=== PATIENT | female | born 1955 | race Caucasian/White ===

== ENCOUNTER 2016-06-22 07:58 | Emergency (ER) | payer BC ==
[~2016-06-22 07:58] MED LIST: ALTACE; ATEN25 PO; ATENOLOL; CENTRUM TAB1 TAB PO; CORDARONE PO; JANTOVEN3 MG PO; JANTOVEN4 MG PO; JANTOVEN6 MG PO; KDUR20 PO; L20 PO; LIPITOR40 PO; MICRO-K10 MEQ PO; PRIN10 PO; PRIN2.5 PO; SIMVASTATIN
[2016-06-22 08:12] LABS: BASOPHILS 0.2 %; BASOPHILS ABSOLUTE 0.03 10/3/uL (0.0-0.16); EOSINOPHILS 1.3 %; EOSINOPHILS ABSOLUTE 0.16 10/3/uL (0.0-0.53); HEMOGLOBIN 11.2 g/dL (12.0-16.0); IMMATURE GRANULOCYTES 0.3 %; IMMATURE GRANULOCYTES ABSOLUTE 0.04 10/3/uL (0.0-0.11); LYMPHOCYTES 10.4 %; LYMPHOCYTES ABSOLUTE 1.26 10/3/uL (0.67-4.30); MEAN CORPUSCULAR HEMOGLOB 32.5 pg (26.0-34.0); MEAN PLATELET VOLUME 10.7 fL (9.2-13.0); MONOCYTES 7.8 %; MONOCYTES ABSOLUTE 0.94 10/3/uL (0.21-1.20); NEUTROPHILS ABSOLUTE 9.68 10/3/uL (2.02-8.40); PLATELET COUNT 216 10/3/uL (150-400); RBC DISTRIBUTION WIDTH 12.9 % (12.0-16.0); RED CELL COUNT 3.45 10/6/uL (4.0-5.6)
[2016-06-22 08:14] LABS: ER CBC TAT 0 Hrs 10 Mins; HEMATOCRIT 33.4 % (36.0-48.0); MANUAL DIFF NO %; MEAN CORPUS HGB CONC 33.5 g/dL (32.0-36.0); MEAN CORPUSCULAR VOLUME 96.8 fL (80-100); WHITE BLOOD CELLS 12.1 10/3/uL (4.5-10.5)
[2016-06-22 08:31] LABS: A/G RATIO 0.9 (0.7-1.9); ALBUMIN 3.1 G/DL (3.5-5.0); ALKALINE PHOSPHATASE 108 U/L (45-117); BUN (BLOOD UREA NITROGEN) 54 MG/DL (6-23); CALCIUM, SERUM 8.5 MG/DL (8.5-10.4); CHLORIDE, SERUM 105 MMOL/L (96-112); CO2 (CARBON DIOXIDE) 26 MMOL/L (24-34); CREATININE 2.26 MG/DL (0.55-1.02); GFR AFRICAN AMERICAN 26 ML/MIN (>=60); GFR NON AFRICAN AMERICAN 23 ML/MIN (>=60); GLOBULIN 3.3 G/DL (2.5-4.1); GLUCOSE, SERUM 95 MG/DL (60-99); SGOT(AST) 18 U/L (5-40); SGPT(ALT) 14 U/L (5-65); SODIUM, SERUM 139 MMOL/L (135-148); TOTAL BILIRUBIN 0.5 MG/DL (0-1.2); TOTAL PROTEIN 6.4 G/DL (6.0-8.5)
[2016-06-22 08:40] LABS: ASCORBIC ACID (UR NOT ORDER) NEG (NEG); BILIRUBIN, URINE NEGATIVE (NEG); ER URINALYSIS TAT 0 Hrs 00 Mins; KETONE, URINE NEGATIVE (NEG); LEUKOCYTE ESTERASE(NOT OR NEG (NEG); NITRITE (URINE) NEG (NEG); WBC (NOT ORDERED) (RFLEX) < 1 (0-5)
[2016-06-22] MEDS ORDERED: COREG6 PO (09:28)
[2016-06-22] MEDS ORDERED: PACERONE100 MG PO (09:28)
[2016-06-22] MEDS ORDERED: JANTOVEN2.5 MG PO (09:29)
[2016-06-22] MEDS ORDERED: LIPITOR40 PO (09:29)
[2016-06-22] MEDS ORDERED: KLOR-CON M2020 MEQ PO (09:30)
[2016-06-22] MEDS ORDERED: PRIN10 PO (09:30)
[2016-06-22 11:33] LABS: CHLAMYDIA TRACH PCR NOT DETECTED (NOT DETEC); GC PCR NOT DETECTED (NOT DETECT); SOURCE: FEMALE URINE
== END 2016-06-22 12:40 | disposition home or self-care (01) ==
LOC: ER 07:58
PROVIDERS: Nurse Practitioner Family
DX: N17.9 Acute kidney failure, unspecified (principal); B37.3 Candidiasis of vulva and vagina; D72.829 Elevated white blood cell count, unspecified; I25.2 Old myocardial infarction; I10 Essential (primary) hypertension; I48.91 Unspecified atrial fibrillation; Z95.810 Presence of automatic (implantable) cardiac defibrillator; Z79.899 Other long term (current) drug therapy; Z79.01 Long term (current) use of anticoagulants
CPT/HCPCS: 80053; 81001; 83690; 85025; 87210; 87491; 87591; 99284

== ENCOUNTER 2016-08-03 10:41 | Emergency (ER) | payer BC ==
[~2016-08-03 10:41] MED LIST changes: +COREG6 PO; +JANTOVEN2.5 MG PO; +KLOR-CON M2020 MEQ PO; +PACERONE100 MG PO
[2016-08-03 10:51] LABS: BASOPHILS 0.4 %; BASOPHILS ABSOLUTE 0.05 10/3/uL (0.0-0.16); EOSINOPHILS 0.9 %; ER CBC TAT 0 Hrs 05 Mins; HEMATOCRIT 31.8 % (36.0-48.0); HEMOGLOBIN 10.3 g/dL (12.0-16.0); IMMATURE GRANULOCYTES 0.3 %; IMMATURE GRANULOCYTES ABSOLUTE 0.03 10/3/uL (0.0-0.11); LYMPHOCYTES 5.2 %; LYMPHOCYTES ABSOLUTE 0.61 10/3/uL (0.67-4.30); MANUAL DIFF NO %; MEAN CORPUS HGB CONC 32.4 g/dL (32.0-36.0); MEAN CORPUSCULAR HEMOGLOB 31.7 pg (26.0-34.0); MEAN CORPUSCULAR VOLUME 97.8 fL (80-100); MEAN PLATELET VOLUME 10.4 fL (9.2-13.0); MONOCYTES 5.3 %; MONOCYTES ABSOLUTE 0.62 10/3/uL (0.21-1.20); NEUTROPHILS 87.9 %; NEUTROPHILS ABSOLUTE 10.23 10/3/uL (2.02-8.40); PLATELET COUNT 227 10/3/uL (150-400); RBC DISTRIBUTION WIDTH 14.4 % (12.0-16.0); RED CELL COUNT 3.25 10/6/uL (4.0-5.6); WHITE BLOOD CELLS 11.6 10/3/uL (4.5-10.5)
[2016-08-03 10:51] LABS: ASCORBIC ACID (UR NOT ORDER) NEG (NEG); BILIRUBIN, URINE NEGATIVE (NEG); ER URINALYSIS TAT 0 Hrs 15 Mins; KETONE, URINE NEGATIVE (NEG); LEUKOCYTE ESTERASE(NOT OR SMALL (NEG); NITRITE (URINE) NEG (NEG); WBC (NOT ORDERED) (RFLEX) 6 (0-5)
[2016-08-03 10:58] LABS: INTERNATIONAL NORMAL RATI 2.5 UNITS (-); PARTIAL THROMBO TIME 42.8 SEC (22.5-37.2); PROTIME (NOT ORD) 26.8 SEC (12.0-14.5)
[2016-08-03 11:09] LABS: CALCIUM, SERUM 8.6 MG/DL (8.5-10.4); CHEST PAIN PROFILE TAT 0 Hrs 23 Mins; CHLORIDE, SERUM 102 MMOL/L (96-112); CO2 (CARBON DIOXIDE) 25 MMOL/L (24-34); POTASSIUM, SERUM 4.2 MMOL/L (3.5-5.3); SODIUM, SERUM 134 MMOL/L (135-148); TROPONIN I 0.02 NG/ML (<0.05)
[2016-08-03 11:11] LABS: BUN (BLOOD UREA NITROGEN) 23 MG/DL (6-23); CREATININE 1.38 MG/DL (0.55-1.02); GFR AFRICAN AMERICAN 48 ML/MIN (>=60); GFR NON AFRICAN AMERICAN 41 ML/MIN (>=60); GLUCOSE, SERUM 119 MG/DL (60-99)
== END 2016-08-03 15:23 | disposition home or self-care (01) ==
LOC: ER 10:41
PROVIDERS: Emergency Medicine
DX: I50.9 Heart failure, unspecified (principal); I48.2 Chronic atrial fibrillation; N39.0 Urinary tract infection, site not specified; Z79.899 Other long term (current) drug therapy; Z95.810 Presence of automatic (implantable) cardiac defibrillator
CPT/HCPCS: 71020; 80048; 81001; 83735; 83880; 84484; 85025; 85610; 85730; 87077; 87086; 87186; 93005; 96374; 99285